=== PATIENT | female | born 1995 | race Caucasian/White ===

== ENCOUNTER 2018-04-26 18:17 | Emergency (ER) | payer BC, OTHER ==
[2018-04-26] MEDS ORDERED: Ketorolac 30 MG/ML SDV IM ONE ×2 (18:39→19:07)
[2018-04-26] MEDS ORDERED: hydrOXYzine HCl 50 MG/ML SDV IM ONE (18:39)
--- NOTE | 2018-04-26 18:45 | EDM.PDOC ---
ED HPI GENERAL MEDICAL PROBLEM - General Chief Complaint: Headache Stated Complaint: MIGRAINE Time Seen by Provider: 04/26/18 18:30 Source of Information: Reports: Patient, Family History Limitations: Reports: No Limitations - History of Present Illness INITIAL COMMENTS - FREE TEXT/NARRATIVE: Estrella comes into [facility] ED this evening with an hour long L temporal and retroorbital headache characterized as throbbing and intense. There is associated photophobia, nausea, and malaise. There are lesser sxs on the R side. She took some Tylenol for sxs relief. Her prescription meds are depleted, last "bad" headache almost 2 years ago. 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 Social & Family History - Family History Family Medical History: Noncontributory - Tobacco Use Smoking Status *Q: Never Smoker Second Hand Smoke Exposure: No - Caffeine Use Caffeine Use: Reports: None - Recreational Drug Use Recreational Drug Use: No ED ROS GENERAL - Review of Systems Review Of Systems: See Below Constitutional: Reports: Decreased Appetite HEENT: Reports: Eye Pain (R retro orbital), Other (headache) Respiratory: Reports: No Symptoms Cardiovascular: Reports: No Symptoms Endocrine: Reports: No Symptoms GI/Abdominal: Reports: Decreased Appetite, Nausea : Reports: No Symptoms Musculoskeletal: Reports: No Symptoms Skin: Reports: No Symptoms Neurological: Reports: Headache Psychiatric: Reports: No Symptoms Hematologic/Lymphatic: Reports: No Symptoms Immunologic: Reports: No Symptoms - Physical Exam Exam: See Below Exam Limited By: No Limitations General Appearance: Alert, WD/WN, Moderate Distress Eye Exam: Bilateral Eye: EOMI, Normal Inspection, PERRL Ears: Normal External Exam, Normal TMs Nose: Normal Inspection, Normal Mucosa Throat/Mouth: Normal Inspection, Normal Lips, Normal Gums, Normal Oropharynx, Normal Voice Head Exam: Atraumatic, Normocephalic Neck: Normal Inspection, Supple, Non-Tender, Full Range of Motion Respiratory/Chest: Lungs Clear, Normal Breath Sounds Cardiovascular: Regular Rate, Rhythm, No Murmur GI/Abdominal: Normal Bowel Sounds, Soft, Non-Tender, No Organomegaly, No Distention, No Mass (Female) Exam: Deferred Rectal (Female) Exam: Deferred Neuro Exam (Abbreviated): Alert, Oriented, CN II-XII Intact, Normal Cognition, No Motor/Sensory Deficits Back Exam: Normal Inspection Extremities: Normal Inspection Psychiatric: Normal Affect, Normal Mood Skin Exam: Warm, Dry, Intact, Normal Color, No Rash Course - Vital Signs Text/Narrative:: Following assessment, I administered Vistaril 50 mg IM and Toradol 30 mg IM x 2 doses. Patient tolerated well. Last Recorded V/S: Last Vital Signs Temp 36.6 C 04/26/18 18:28 Pulse 63 04/26/18 18:28 Resp 18 04/26/18 18:28 BP 143/77 H 04/26/18 18:28 Pulse Ox 100 04/26/18 18:28 - Orders/Labs/Meds Meds: Medications Discontinued Medications Generic Name Dose Route Start Last Admin Trade Name Saul PRN Reason Stop Dose Admin Hydroxyzine HCl 50 mg 04/26/18 18:39 04/26/18 18:44 Vistaril IM 04/26/18 18:40 50 mg ONETIME ONE Administration Ketorolac Tromethamine 30 mg 04/26/18 18:39 04/26/18 18:44 Toradol IM 04/26/18 18:40 30 mg ONETIME ONE Administration Ketorolac Tromethamine 30 mg 04/26/18 19:07 04/26/18 19:12 Toradol IM 04/26/18 19:08 30 mg ONETIME ONE Administration Departure - Departure Time of Disposition: 19:25 Disposition: Home, Self-Care 01 Condition: Fair Clinical Impression: Migraine - Discharge Information *PRESCRIPTION DRUG MONITORING PROGRAM REVIEWED*: Not Applicable *COPY OF PRESCRIPTION DRUG MONITORING REPORT IN PATIENT LUIS: Not Applicable Referrals: PCP,None [Primary Care Provider] - Forms: ED Department Discharge - Problem List & Annotations (1) Migraine SNOMED Code(s): 21596235 Code(s): G43.909 - MIGRAINE, UNSP, NOT INTRACTABLE, WITHOUT STATUS MIGRAINOSUS Status: Acute Current Visit: No Annotation/Comment:: I suggested rest, NSAIDs, and hydration. - Problem List Review Problem List Initiated/Reviewed/Updated: Yes - Assessment/Plan Plan: Follow up with PCP.
== END 2018-04-26 19:30 | disposition home or self-care (01) ==
LOC: FB.ED 18:17
DX: G43.909 Migraine, unspecified, not intractable, without status migrainosus (principal); Z88.1 Allergy status to other antibiotic agents
CPT/HCPCS: 96372; 99283; J1885; J3410

== ENCOUNTER 2018-09-09 12:28 | Emergency (ER) | payer BC ==
--- NOTE | 2018-09-09 12:44 | EDM.PDOC ---
ED HPI GENERAL MEDICAL PROBLEM - General Stated Complaint: 14 WEEKS , BLEEDING Time Seen by Provider: 09/09/18 12:28 Source of Information: Reports: Patient, Family History Limitations: Reports: No Limitations - History of Present Illness INITIAL COMMENTS - FREE TEXT/NARRATIVE: 23 y.o.w.f G@ P1 AB0 last normal menstrual period was Jul 05 2018, came to the ED because of vaginal spotting for 3 days. No N/V/D. No trauma. No Dysuria or any other acute med issues. 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 Social & Family History - Family History Family Medical History: Noncontributory - Caffeine Use Caffeine Use: Reports: None ED ROS GENERAL - Review of Systems Review Of Systems: See Below Constitutional: Reports: No Symptoms HEENT: Reports: No Symptoms Respiratory: Reports: No Symptoms Cardiovascular: Reports: No Symptoms Endocrine: Reports: No Symptoms GI/Abdominal: Reports: No Symptoms : Reports: No Symptoms Musculoskeletal: Reports: No Symptoms Skin: Reports: No Symptoms Neurological: Reports: No Symptoms Psychiatric: Reports: No Symptoms Hematologic/Lymphatic: Reports: No Symptoms Immunologic: Reports: No Symptoms ED EXAM - Physical Exam Exam: See Below Exam Limited By: No Limitations General Appearance: Alert, WD/WN, Mild Distress Eye Exam: Bilateral Eye: Normal Inspection Ears: Normal External Exam, Normal Canal Nose: Normal Inspection, Normal Mucosa Throat/Mouth: Normal Inspection, Normal Lips, Normal Voice, No Airway Compromise Head: Atraumatic, Normocephalic Neck: Normal Inspection, Supple, Non-Tender, Full Range of Motion Respiratory/Chest: No Respiratory Distress, Lungs Clear, Normal Breath Sounds Cardiovascular: Normal Peripheral Pulses, Regular Rate, Rhythm, No Edema GI/Abdominal Exam: Normal Bowel Sounds, Soft, Non-Tender, No Organomegaly, Pelvis Stable Rectal Exam: Deferred (Female) Exam: Deferred for Placenta Previa Back Exam: Normal Inspection Extremities: Normal Inspection, Normal Range of Motion Neurological: Alert, Oriented, CN II-XII Intact, Normal Cognition, Normal Gait Psychiatric: Normal Affect, Normal Mood Skin Exam: Warm, Dry, Intact, Normal Color, No Rash, Stud(s) Course - Vital Signs Text/Narrative:: 23 y.o.w.f G@ P1 AB0 last normal menstrual period was Jul 05 2018, came to the ED because of vaginal spotting for 3 days. No N/V/D. No trauma. No Dysuria or any other acute med issues. BP 123/76 RR 15 Pulse ox 100% on RA Pulse 73 Temp 26.6 PE: WNWD W F Pelvix exam was not performed due to poss placenta previa Imaging: Pelvic US: Nl 13 weeks 5 days, HR 155, nl . Official report is pending Impression: vaginal spotting Tx: Recommended pelvic rest Plan: D/C with instructions Last Recorded V/S: Last Vital Signs Temp 37.1 C 09/09/18 12:40 Pulse 55 L 09/09/18 14:06 Resp 16 09/09/18 14:06 BP 124/68 09/09/18 14:06 Pulse Ox 100 09/09/18 14:06 - Orders/Labs/Meds Orders: Active Orders 24 hr Category Date Time Status OB 1st Tri Sgl 1st Gest [US] Stat Exams 09/09/18 12:46 Taken Labs: Laboratory Tests 09/09/18 Range/Units 12:33 Urine Color Yellow (YELLOW) Urine Appearance Clear (CLEAR) Urine pH 5.0 (5.0-6.5) Ur Specific [place] 1.025 (1.010-1.025) Urine Protein Negative (NEGATIVE) mg/dL Urine Glucose (UA) Normal (NORMAL) mg/dL Urine Ketones Negative (NEGATIVE) mg/dL Urine Occult Blood Negative (NEGATIVE) Urine Nitrite Negative (NEGATIVE) Urine Bilirubin Negative (NEGATIVE) Urine Urobilinogen Normal (NEGATIVE) mg/dL Ur Leukocyte Esterase Negative (NEGATIVE) Urine RBC 0-5 (0-5) Urine WBC 0-5 (0-5) Ur Squamous Epith Cells Moderate H (NS,R,O) Urine Bacteria Few H (NS) Urine Mucus Many H (NS) Departure - Departure Time of Disposition: 14:04 Disposition: Home, Self-Care 01 Condition: Good Clinical Impression: Vaginal spotting - Discharge Information Instructions: Vaginal Bleeding During , Second Trimester, Activity Restriction During , Second Trimester of Referrals: PCP,None [Primary Care Provider] - Forms: ED Return to Work/School Form Additional Instructions: Pelvic rest till bleed stopped completely. Please f/u, come back if your symptoms get worse acutely. - My Orders Last 24 Hours: My Active Orders 09/09/18 12:46 OB 1st Tri Sgl 1st Gest [US] Stat - Assessment/Plan Last 24 Hours: My Active Orders 09/09/18 12:46 OB 1st Tri Sgl 1st Gest [US] Stat
--- NOTE | 2018-09-10 14:49 | US ---
INDICATION: Vaginal bleeding, question ectopic . OB ULTRASOUND, FIRST TRIMESTER: Multiple ultrasonic images were obtained and revealed a single intrauterine gestation with a regular heart rate of 154 BPM. A normal amount of amniotic fluid is suggested. The cervix was unremarkable, measuring 5.6 cm. The placenta is fundal - anterior/posterior, without evidence of abruption or previa. No adnexal mass lesions or free fluid collections were suggested. The left ovary measured 2.8 x 2.1 x 4.1 cm with what looks like a follicle. The right ovary measured 2.8 x 1.8 x 2.9 cm and was unremarkable. [place]/rump length of the fetus was compatible with 13 weeks, 5 days gestational age, which is identical to the LMP GA. SILKE for both is, therefore, 03/12/19. The LMP was 06/05/18. IMPRESSION: Normal appearing IUP of 13 weeks, 5 days, agreeing exactly with the LMP GA for an SILKE by ultrasound and LMP at 03/12/19. No ectopic or placental bleeding site is identified. MTDD
== END 2018-09-09 14:13 | disposition home or self-care (01) ==
LOC: FB.ED 12:28
DX: O26.852 Spotting complicating pregnancy, second trimester (principal); Z3A.14 14 weeks gestation of pregnancy; Z88.1 Allergy status to other antibiotic agents
CPT/HCPCS: 76801; 81001; 99284-25

== ENCOUNTER 2020-03-18 11:16 | Emergency (ER) | payer BC, OTHER ==
[2020-03-18] MEDS ORDERED: Ketorolac 60 MG/2 ML SDV IM ONE (11:25)
[2020-03-18] MEDS ORDERED: Ondansetron 4 MG Tab.DIS PO STA (11:25)
[2020-03-18] MEDS ORDERED: Morphine 2 MG/ML SYRINGE IVPUSH STA (11:49)
--- NOTE | 2020-03-18 12:05 | EDM.PDOC ---
ED HPI GENERAL MEDICAL PROBLEM - General Stated Complaint: NAUSEA/VOMITING/PAIN Time Seen by Provider: 03/18/20 11:40 Source of Information: Reports: Patient History Limitations: Reports: No Limitations - History of Present Illness INITIAL COMMENTS - FREE TEXT/NARRATIVE: Patient presented to the ED because of headache which started this morning. It's throbbing behind the eyeballs, 8/10, with associated nausea/vomiting x1 and photophobia. There is no fever,chills, neck stiffness. 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 Social & Family History - Family History Family Medical History: No Pertinent Family History - Caffeine Use Caffeine Use: Reports: None Other Caffeine Use: not as much as she used to. ED ROS GENERAL - Review of Systems Review Of Systems: See Below Constitutional: Reports: No Symptoms HEENT: Reports: No Symptoms Respiratory: Reports: No Symptoms Cardiovascular: Reports: No Symptoms Endocrine: Reports: No Symptoms GI/Abdominal: Reports: No Symptoms : Reports: No Symptoms Musculoskeletal: Reports: No Symptoms Skin: Reports: No Symptoms Neurological: Reports: Headache - Physical Exam Exam: See Below Exam Limited By: No Limitations General Appearance: Alert, No Apparent Distress Ears: Normal External Exam, Normal Canal Nose: Normal Inspection, Normal Mucosa Throat/Mouth: Normal Inspection Head Exam: Atraumatic, Normocephalic Neck: Normal Inspection, Supple, Non-Tender, Full Range of Motion Respiratory/Chest: No Respiratory Distress, Lungs Clear, Normal Breath Sounds Cardiovascular: Normal Peripheral Pulses, Regular Rate, Rhythm, No Edema, No Gallop GI/Abdominal: Normal Bowel Sounds, Soft, Non-Tender, No Organomegaly Neuro Exam (Abbreviated): Alert, Oriented, CN II-XII Intact, Normal Cognition, Normal Gait, Normal Reflexes, No Motor/Sensory Deficits Course - Vital Signs Text/Narrative:: Toradol 60 mg IM Zofran 4 mg ODT Last Recorded V/S: Last Vital Signs Temp 37.3 C 03/18/20 15:00 Pulse 80 03/18/20 15:00 Resp 16 03/18/20 15:00 BP 133/68 03/18/20 15:00 Pulse Ox 100 03/18/20 15:00 - Orders/Labs/Meds Labs: Laboratory Tests 03/18/20 03/18/20 03/18/20 Range/Units 11:20 14:00 14:00 WBC 16.5 H (3.0-10.3) x10-3/uL RBC 4.58 (3.60-5.20) x10(6)uL Hgb 13.6 (11.4-15.5) g/dL Hct 42.5 (34.2-48.2) % MCV 92.8 (76.7-100.5) fL MCH 29.7 (23.9-33.9) pg MCHC 32.0 (31.9-34.8) g/dL RDW 13.0 (12.3-16.5) % Plt Count 314 (151-488) x10(3)uL MPV 9.0 (7.1-12.4) fL Add Manual Diff Yes Neutrophils % (Manual) 80 (46-82) % Lymphocytes % (Manual) 12 L (13-37) % Monocytes % (Manual) 8 (4-12) % Sodium 141 (135-145) mmol/L Potassium 4.4 (3.5-5.3) mmol/L Chloride 102 (100-110) mmol/L Carbon Dioxide 29 (21-32) mmol/L BUN 14 (7-18) mg/dL Creatinine 0.8 (0.55-1.02) mg/dL Est Cr Clr Drug Dosing 100.63 mL/min Estimated GFR (MDRD) > 60 (>60) BUN/Creatinine Ratio 17.5 (9-20) Glucose 100 (80-116) mg/dL Calcium 9.3 (8.6-10.2) mg/dL Urine Opiates Screen Negative (NEGATIVE) Ur Oxycodone Screen Negative (NEGATIVE) Ur Propoxyphene Screen Negative (NEGATIVE) Ur Barbituates Screen Negative (NEGATIVE) Ur Tricyclics Screen Negative (NEGATIVE) Ur Phencyclidine Scrn Negative (NEGATIVE) Ur Amphetamine Screen Negative (NEGATIVE) Urine MDMA Screen Negative (NEGATIVE) U Benzodiazepines Scrn Negative (NEGATIVE) U Cocaine Metab Screen Negative (NEGATIVE) U Marijuana (THC) Screen Negative (NEGATIVE) Meds: Medications Discontinued Medications Generic Name Dose Route Start Last Admin Trade Name Freq PRN Reason Stop Dose Admin Hydrocodone Bitart/Acetaminophen 2 tab 03/18/20 12:10 03/18/20 12:14 Emery 325-5 Mg PO 03/18/20 12:11 2 tab NOW STA Administration Hydroxyzine HCl 50 mg 03/18/20 12:19 03/18/20 12:23 Vistaril IM 03/18/20 12:20 50 mg ONETIME ONE Administration Sodium Chloride 1,000 mls @ 999 mls/hr 03/18/20 13:45 03/18/20 13:48 Normal Saline IV 999 mls/hr ASDIRECTED CRUZ Administration Ketorolac Tromethamine 60 mg 03/18/20 11:25 03/18/20 11:33 Toradol IM 03/18/20 11:26 60 mg ONETIME ONE Administration Morphine Sulfate 2 mg 03/18/20 11:49 03/18/20 12:19 Morphine IVPUSH 03/18/20 11:50 Not Given NOW STA Ondansetron HCl 4 mg 03/18/20 11:25 03/18/20 11:33 Zofran Odt PO 03/18/20 11:26 4 mg NOW STA Administration Ondansetron HCl 4 mg 03/18/20 13:48 03/18/20 13:52 Zofran IVPUSH 03/18/20 13:49 4 mg ONETIME ONE Administration Sumatriptan Succinate 6 mg 03/18/20 12:11 03/18/20 12:14 Imitrex SUBCUT 03/18/20 12:12 6 mg NOW STA Administration Departure - Departure Time of Disposition: 12:30 Disposition: Home, Self-Care 01 Condition: Good Clinical Impression: Migraine - Discharge Information Prescriptions: Rizatriptan [Maxalt OFFAL SEPARATOR] 10 mg PO ASDIRECTED PRN #5 tab.dis PRN Reason: Headache Ondansetron [Zofran ODT] 4 mg PO Q4H PRN #5 tab.dis PRN Reason: Nausea Instructions: Migraine Headache, [id number] Referrals: PCP,Unknown [Primary Care Provider] - Forms: ED Department Discharge Additional Instructions: Please read discharge instructions on migraine Take maxalt 10 mg with ibuprofen 800 and tylenol 1000 mg every 8 hours as needed for your headache Zofran ODT every 4 hours as needed for nausea Follow up as needed Sepsis Event Note (ED) - Focused Exam Vital Signs: Vital Signs Temp Pulse Resp BP Pulse Ox 03/18/20 15:00 37.3 C 80 16 133/68 100 03/18/20 11:16 36.3 C 57 L 17 115/63 100
[2020-03-18] MEDS ORDERED: Acetaminophen/HYDROcodone 325-5 MG Tab PO STA (12:10)
[2020-03-18] MEDS ORDERED: SUMAtriptan 6 MG/0.5 ML SDV SUBCUT STA (12:11)
[2020-03-18] MEDS ORDERED: hydrOXYzine HCl 50 MG/ML SDV IM ONE (12:19)
[2020-03-18] MEDS ORDERED: Sodium Chloride 0.9% 1,000 ML IV SCH (13:45)
[2020-03-18] MEDS ORDERED: Ondansetron 4 MG/2 ML SDV IVPUSH ONE (13:48)
== END 2020-03-18 15:47 | disposition home or self-care (01) ==
LOC: FB.ED 11:16
DX: G43.909 Migraine, unspecified, not intractable, without status migrainosus (principal); E66.9 Obesity, unspecified; Z68.25 Body mass index [BMI] 25.0-25.9, adult; Z88.0 Allergy status to penicillin
CPT/HCPCS: 36415; 80048; 80305-QW; 85025; 96372; 96374; 99284-25; A9270-GY; J1885; J2405; J3030; J3410; J7030